=== PATIENT | female | born 1980 | race Caucasian/White ===

== ENCOUNTER → 2017-04-27 | Day surgery (SDC) | payer OTHER ==
[~2017-04-27] VITALS: Ht 165.1 cm; Wt 54.9 kg
[~2017-04-27] MED LIST: IBUPROFEN800 MG PO; [UNRECOGNIZED DRUG - OTHER] PO
--- NOTE | 2017-04-30 17:20 | Operative Report ---
Operative/Inv Procedure Report Surgery Date: 04/28/17 Name of Procedure: Suction D&C Pre-Operative Diagnosis: Incomplete Post-Operative Diagnosis: Same Estimated Blood Loss: 50ml to 100ml Surgeon/Drill Press Operator Numerical Control: SMILEY MANCINI MD Anesthesia: moderate sedation Operative/Procedure Note Note: Procedure note patient was taken the operating position after adequate anesthesia patient placed in dorsolithotomy position vagina from dorsal fashion bladder was catheterized at this point examination anesthesia performed a gomes speculum was placed into the vagina ring forcep placed 12:00 on cervix into down traction cervix was dilated 20 Hegar to allow for the insertion of a sharp curettage sharp curettage of the lining was performed pricey conception were noted intravenous Pitocin was started dictating uterine contractility at this point I the patient tolerated that well on a suction curettage of the lining was performed products conception were noted hemostasis was apparent on since removed from the vagina at the end of the case patient positive uterine cry CRI was noted patient was returned spine position awakened from anesthesia and transferred recovery room awake alert with counts correct
== END ==
LOC: STS 07:00
DX: O03.4 Incomplete spontaneous abortion without complication (principal)
CPT/HCPCS: 36415; 86920; 86922; 88305; J1100; J2250; J2405

== ENCOUNTER 2018-03-25 08:37 | Inpatient (IN) | payer OTHER ==
[~2018-03-25] VITALS: Ht 165.1 cm; Wt 72.6 kg
[2018-03-25 09:13] LABS: ABSOLUTE BASOPHIL COUNT 0 /CUMM (0.0-0.2); ABSOLUTE EOSINOPHIL COUNT 0.1 /CUMM (0.0-0.7); ABSOLUTE GRANULOCYTE CT 5.8 /CUMM (1.4-6.5); ABSOLUTE LYMPH COUNT 1.5 /CUMM (1.2-3.4); ABSOLUTE MONOCYTE COUNT 0.4 /CUMM (0.10-0.60); BASOPHIL % 0.4 % (0.0-2.0); EOSINOPHIL % 0.7 % (0-5); GRANULOCYTE % 74.7 % (42.2-75.2); HEMATOCRIT 36.1 % (37-47); MEAN CORPUSCULAR HGB 32.3 PG (27.0-31.0); MEAN CORPUSCULAR HGB CONC 34.7 G/DL (33.0-37.0); MEAN CORPUSCULAR VOLUME 92.9 FL (81.0-99.0); MEAN PLATELET VOLUME 9.1 FL (7.4-10.4); PLATELET COUNT 144 /CUMM (130-400); RED BLOOD CELL CT 3.89 /CUMM (4.20-5.40); WHITE BLOOD CELL COUNT 7.7 /CUMM (4.8-10.8)
--- NOTE | 2018-03-25 12:04 | PN- Obstetrical ---
Subjective Subjective: 2/10 PAIN Objective Last 24 Hrs of Vital Signs/I&O Intake & Output 03/25 1600 03/25 0800 03/25 0000 Intake Total Output Total Balance Patient 160 lb Weight Physical Exam: PE THIN WF INNAD ABD SOFT NT PELVIC 3 CM 80 Obstetric Exam Dilation (cm): 3 Effacement (%): 80 Station: 0 Membranes: AROM Fluid: bloody show Multiple Gestation? No Contractions: Q 6 MINUTES Assessment/Plan Assessment/Plan ASSESS TERM PLANPITOCIN AROM OBSEVE FOR
[2018-03-25 16:55] VITALS: BP 134/61
--- NOTE | 2018-03-25 16:56 | Labor & Delivery Summary ---
Delivery Summary Vaginal Delivery: Vaginal: vertex Episiotomy/Lacerations: Episiotomy/Lacerations: none Placenta: Placenta: spontanteous, normal, 3 vessel Anesthesia: block Additional Comments: OVER INTACT PERNIEUM SPONTANEOUS ANT OVER SHOULDER .PLACENTA BY CCT INTPERINEUM INTACT O-
[2018-03-26 09:14] LABS: ABSOLUTE BASOPHIL COUNT 0 /CUMM (0.0-0.2); ABSOLUTE EOSINOPHIL COUNT 0.1 /CUMM (0.0-0.7); ABSOLUTE GRANULOCYTE CT 7.1 /CUMM (1.4-6.5); ABSOLUTE LYMPH COUNT 1.4 /CUMM (1.2-3.4); ABSOLUTE MONOCYTE COUNT 0.5 /CUMM (0.10-0.60); BASOPHIL % 0.3 % (0.0-2.0); EOSINOPHIL % 0.6 % (0-5); GRANULOCYTE % 77.9 % (42.2-75.2); HEMATOCRIT 33.9 % (37-47); MEAN CORPUSCULAR VOLUME 94.1 FL (81.0-99.0); MEAN PLATELET VOLUME 9.5 FL (7.4-10.4); PLATELET COUNT 128 /CUMM (130-400); RBC DISTRIBUTION WIDTH 14.1 % (11.5-14.5); WHITE BLOOD CELL COUNT 9.1 /CUMM (4.8-10.8)
--- NOTE | 2018-03-27 10:12 | PN- Post Delivery/GYN ---
Subjective Subjective: NO COMPLAINTS Objective Last 24 Hrs of Vital Signs/I&O PER CHART Physical Exam: PE THIN WF IN NAD HEENT PERRLA EOMI ABD BS FUNDUS FIRM NT EXT =-EDEMA -HOMANS Assessment/Plan Assessment/Plan ASSESS S/P PLAN CONT PPC
== END 2018-03-27 10:25 | DRG 775 ==
LOC: GNO 08:37
PROVIDERS: Specialist
PROC: 3E0334Z Introduction of Serum, Toxoid and Vaccine into Peripheral Vein, Percutaneous Approach (ICD-10-PCS; principal; 2018-03-25)
PROC: 10E0XZZ Delivery of Products of Conception, External Approach (ICD-10-PCS; principal; 2018-03-25)
DX: O26.893 Other specified pregnancy related conditions, third trimester (principal); Z88.2 Allergy status to sulfonamides; Z67.91 Unspecified blood type, Rh negative; Z3A.39 39 weeks gestation of pregnancy; Z37.0 Single live birth
CPT/HCPCS: GNOS; 36415; 81001; 87086; J2790; J7120